=== PATIENT | male | born 2000 | race Two or more races ===

== ENCOUNTER → 2024-10-15 | Outpatient (CLI) | payer BC, SELFPAY ==
--- NOTE | 2024-10-15 09:30 | XR_ITS ---
Examination: Esophagram standard Fluoroscopy 19 spot fluoroscopic films of the esophagus Upright PA chest single view Upright soft tissue lateral neck single view Date and time: October 15, 2024 1016 hours INDICATIONS: Tightness in the throat and difficulty swallowing beginning 4 months ago. TECHNIQUE AND FINDINGS: Upright PA chest single view demonstrates normal heart size, clear lungs Upright soft tissue lateral neck single view demonstrates normal epiglottis Patient swallowed thin barium with primary peristaltic esophageal waves noted Moderate intermittent gastroesophageal reflux. No esophageal filling defects No constricting esophageal lesion No esophageal ulceration IMPRESSION: Primary peristaltic esophageal waves Moderate intermittent gastroesophageal reflux, no stricture at the gastroesophageal junction. Fluoroscopy 0.11 minutes 18 spot fluoroscopic films of the esophagus
== END | disposition home or self-care (01) ==
PROVIDERS: Referring Provider Student in an Organized Health Care Education/Training Program; Visit Provider Student in an Organized Health Care Education/Training Program
DX: K21.9 Gastro-esophageal reflux disease without esophagitis (principal)
CPT/HCPCS: 74220; A4649

== ENCOUNTER → 2024-10-29 | Outpatient (CLI) | payer BC, SELFPAY ==
--- NOTE | 2024-10-29 16:02 | XR_ITS ---
Examination: PA lateral chest 2 views. Technique: Upright PA lateral chest 2 views Date and time: October 29, 2024 1613 hrs. Indications: Clinical suspicion heart disease, pleural thickening of the fingers beginning 2021. Findings: Normal heart size. Lungs are clear. No pulmonary vascular congestion. Osseous structures are intact Impression: Negative examination
== END | disposition home or self-care (01) ==
PROVIDERS: PCP Student in an Organized Health Care Education/Training Program; Referring Provider Student in an Organized Health Care Education/Training Program; Visit Provider Student in an Organized Health Care Education/Training Program
DX: I51.9 Heart disease, unspecified (principal)
CPT/HCPCS: 71046